=== PATIENT | male | born 1990 | race Hispanic/Latino ===

== ENCOUNTER 2017-05-26 01:05 | Emergency (ER) | payer SELFPAY | END 2017-05-26 01:46 | disposition home or self-care (01) | LOC: ERS 01:05 | DX: L27.0 Generalized skin eruption due to drugs and medicaments taken internally (principal); Z79.899 Other long term (current) drug therapy | CPT/HCPCS: 99282 ==

== ENCOUNTER 2018-08-25 23:42 | Emergency (ER) | payer SELFPAY ==
[2018-08-26 00:07] LABS: Bilirubin Negative (Negative); Blood, Urine Negative (Negative); Clarity CLEAR (Clear); Glucose, Urine (Dipstick) Negative (Negative); Leukocyte Negative (Negative); Nitrite Negative (Negative); Protein, Urine (Dipstick) Negative (Neg-Trace); pH, Urine 5.5 (5.0-9.0)
== END 2018-08-26 00:35 | disposition home or self-care (01) ==
LOC: ERS 23:42
DX: R30.0 Dysuria (principal)
CPT/HCPCS: 81003; 87086; 99283

== ENCOUNTER 2021-06-14 15:55 | Emergency (ER) | payer SELFPAY ==
[2021-06-14 16:26] LABS: Bilirubin Negative (Negative); Blood, Urine Negative (Negative); Clarity Clear (Clear); Glucose, Urine (Dipstick) Normal (Negative); Ketone, Urine Negative (Negative); Leukocyte Negative Leu/uL (Negative); Nitrite Negative (Negative); Protein, Urine (Dipstick) Negative (Neg-Trace); Specific Gravity, Urine 1.005 (1.002-1.036); Urobilinogen Normal mg/dL (Less than 2)
[2021-06-14] MEDS ORDERED: Ondansetron ODT 4 MG TAB ONE (16:27)
[2021-06-14] MEDS ORDERED: Mag-Al 1200 mg/1200 mg/30 ML UDCUP ONE (16:27)
[2021-06-14] MEDS ORDERED: Lidocaine Viscous Sol 2% 15 ml UD Cup ONE (16:33)
[2021-06-14 16:38] LABS: #Eosinphils 0.1 thou/uL (0.0-0.7); #Lymphocytes 1.1 thou/uL (1.20-3.40); #Monocytes 0.7 thou/uL (0.11-0.59); #Neutrophils 8.7 thou/uL (1.40-6.50); %Basophils 0.1 % (0.0-1.0); %Eosinophils 0.9 % (0.0-10.0); %Monocytes 6.7 % (0.0-10.0); %Neutrophils 82.3 % (42.0-75.0); Hemoglobin 14.6 g/dL (14.0-18.0); Mean Corpuscular HGB CONC 32.5 g/dL (32.0-36.0); Mean Corpuscular Hemoglobin 28.6 pg (27.0-31.0); Mean Corpuscular Volume 87.9 fL (78.0-98.0); Mean Platelet Volume 9.1 fL (7.4-10.4); Platelet Count 194 thou/uL (130-400); Red Blood Cell (RBC) Count 5.12 mill/uL (4.70-6.10); White Blood Cell (WBC) Count 10.6 thou/uL (4.8-10.8)
[2021-06-14 17:16] LABS: ALT (SGPT) 20 U/L (8-55); AST (SGOT) 19 U/L (5-34); Albumin 4.5 g/dL (3.5-5.0); Alkaline Phosphatase 58 U/L (40-110); Anion Gap 13 mmol/L (10-20); BUN (Urea Nitrogen) 13 mg/dL (8.9-20.6); Calc. Creatinine Clearance 0 mL/min (70-130); Calcium 9.5 mg/dL (7.8-10.44); Carbon Dioxide 26 mmol/L (22-29); Chloride 105 mmol/L (98-107); Globulin 2.8 g/dL (2.4-3.5); Glucose 89 mg/dL (70-105); Potassium 4.1 mmol/L (3.5-5.1); Protein, Total 7.3 g/dL (6.0-8.3); Sodium 140 mmol/L (136-145)
== END 2021-06-14 17:51 | disposition home or self-care (01) ==
LOC: ERS 15:57
DX: R11.2 Nausea with vomiting, unspecified (principal); R10.84 Generalized abdominal pain; R10.816 Epigastric abdominal tenderness; R10.812 Left upper quadrant abdominal tenderness
CPT/HCPCS: 36415; 74018; 80053; 81003; 85025; Q0162

== ENCOUNTER 2024-02-18 19:23 | Emergency (ER) | payer BC, SELFPAY ==
[2024-02-18] MEDS ORDERED: Acetaminophen 500 MG TAB ONE (19:50)
[2024-02-18] MEDS ORDERED: Ketorolac Tromethamine 30 MG (1 mL) VIAL ONE (19:51)
[2024-02-18] MEDS ORDERED: Dexamethasone 10 MG/ML VIAL ONE (19:51)
== END 2024-02-18 20:55 | disposition home or self-care (01) ==
LOC: ERS 19:23
DX: R51.9 Headache, unspecified (principal); Z55.6 Problems related to health literacy
CPT/HCPCS: 96372; 99283; J1100; J1885